=== PATIENT | male | born 1970 | race Caucasian/White ===

== ENCOUNTER 2017-08-04 14:57 | Emergency (ER) | payer BC ==
[~2017-08-04 14:57] MED LIST: ALLEGRA ALLERG180 MG PO; CARVEDILOL6.25 MG PO; CATAPRES; ZANTAC25 MG/1 ML
[2017-08-04] MEDS ORDERED: ZYRTEC ALLERGY10 MG PO (15:07)
[2017-08-04] MEDS ORDERED: GAS-X EXTRA ST125 MG PO (15:07)
[2017-08-04] MEDS ORDERED: LISINOPRIL30 MG PO (15:07)
[2017-08-04 16:42] LABS: HEMATOCRIT 43.9 % (42.0-52.0); HEMOGLOBIN 14.7 g/dL (13.5-18.0); MEAN CELL VOLUME 90 fl (78-100); MEAN CORPUSCULAR HEMOGLOBIN 30 pg (27-31); MEAN CORPUSCULAR HGB CONC 34 g/dL (33-37); MEAN PLATELET VOLUME 9.6 fl (7.4-10.4); PLATELET COUNT 228 K/mm3 (130-400); RED CELL DISTRIBUTION WIDTH 12.8 % (11.5-14.5); WHITE BLOOD COUNT 9.7 K/mm3 (4.8-10.8)
[2017-08-04 16:47] LABS: ALBUMIN 4.4 g/dL (3.5-5.0); BUN/CREATININE RATIO 14.3 (6.0-26.0); CALCIUM 8.9 mg/dL (8.4-10.2); POTASSIUM 3.6 mmol/L (3.6-5.0); TOTAL BILIRUBIN 0.8 mg/dL (0.2-1.3); TOTAL PROTEIN 7.3 g/dL (6.3-8.2)
[2017-08-04 16:57] LABS: LYMPHOCYTE 14 % (20-51); MONOCYTE 11 % (3-10); NEUTROPHILS 75 % (42-75)
[2017-08-04 18:02] VITALS: BP 168/109
[2017-08-04 18:06] LABS: URINE APPEARANCE CLEAR; URINE COLOR YELLOW
[2017-08-04 18:07] LABS: PH-URINE 7.5 (5.0 - 8.0); URINE BILIRUBIN NEGATIVE (NEGATIVE); URINE BLOOD NEGATIVE (NEGATIVE); URINE GLUCOSE NEGATIVE (NEGATIVE); URINE KETONE 1+ (NEGATIVE); URINE LEUKOCYTE ESTERASE NEGATIVE (NEGATIVE); URINE NITRATE NEGATIVE (NEGATIVE); URINE PROTEIN(semi-quant) NEGATIVE (NEGATIVE); URINE UROBILINOGEN NORMAL (NORMAL); URINE WBC 0-1 /hpf (0-3)
== END 2017-08-04 18:00 | disposition short-term general hospital (02) ==
LOC: ED 14:57
PROVIDERS: Nurse Practitioner
DX: K35.80 Unspecified acute appendicitis (principal)
CPT/HCPCS: J2270; J2405; J7030

== ENCOUNTER → 2018-03-06 | Outpatient (CLI) | payer BC ==
[~2018-03-06] MED LIST changes: +GAS-X EXTRA ST125 MG PO; +LISINOPRIL30 MG PO; +ZYRTEC ALLERGY10 MG PO
== END ==
LOC: LAB 15:17
DX: J30.1 Allergic rhinitis due to pollen (principal); I10 Essential (primary) hypertension